=== PATIENT | female | born 1970 | race Caucasian/White ===

== ENCOUNTER 2019-01-31 12:44 | Emergency (ER) | payer MEDICAID, OTHER ==
[~2019-01-31] VITALS: Ht 152.4 cm; Wt 63.5 kg
[2019-01-31 15:58] VITALS: BP 135/90
== END 2019-01-31 16:27 | disposition home or self-care (01) ==
LOC: ER 12:54
DX: F41.9 Anxiety disorder, unspecified (principal); Z76.0 Encounter for issue of repeat prescription

== ENCOUNTER 2019-02-05 12:18 | Emergency (ER) | payer MEDICAID ==
[~2019-02-05] VITALS: Ht 152.4 cm; Wt 63.5 kg
[2019-02-05 12:50] VITALS: BP 120/81
== END 2019-02-05 14:04 | disposition home or self-care (01) ==
LOC: ER 12:18
DX: F41.9 Anxiety disorder, unspecified (principal); F20.9 Schizophrenia, unspecified; Z76.0 Encounter for issue of repeat prescription